=== PATIENT | female | born 1940 | race Caucasian/White ===

== ENCOUNTER → 2016-12-02 | Outpatient (POV) | LOC: OUTPT 00:01 | PROVIDERS: ATTEND Otolaryngology | DX: H81.09 Meniere's disease, unspecified ear (principal) | CPT/HCPCS: 92557; 92567 ==

== ENCOUNTER 2017-06-23 12:49 | Outpatient (CLI) | payer OTHER ==
[2017-06-23 14:24] VITALS: BMI 27.5
== END 2017-06-23 12:50 | disposition home or self-care (01) ==
LOC: DIETCN 12:49
PROVIDERS: ATTEND Internal Medicine
DX: M10.9 Gout, unspecified (principal); E78.00 Pure hypercholesterolemia, unspecified